=== PATIENT | male | born 1970 | race Two or more races ===

== ENCOUNTER 2019-09-09 09:41 | Emergency (ER) | payer SELFPAY ==
[~2019-09-09] VITALS: Ht 172.7 cm; Wt 85.0 kg
[2019-09-09] MEDS ORDERED: ACETAMINOPHEN WITH CODEINE 300/30MG TABLET PO ONE (12:00)
[2019-09-09 12:21] VITALS: BP 146/89
== END 2019-09-09 12:22 | disposition home or self-care (01) ==
LOC: ER 09:41
DX: K04.7 Periapical abscess without sinus (principal); K02.9 Dental caries, unspecified; I10 Essential (primary) hypertension
CPT/HCPCS: 99283